=== PATIENT | female | born 1995 | race Caucasian/White ===

== ENCOUNTER 2020-06-03 12:31 | Outpatient (REF) | payer OTHER, SELFPAY ==
[2020-06-03 13:20] LABS: MANUAL DIFF FLAG NO
[2020-06-03 13:24] LABS: Basophils Percent Auto 0.4 % (0-2); Eosinophils Percent Auto 0.6 % (0-4); Hematocrit 40.9 % (37-47); Hemoglobin 14.2 g/dl (12.0-16.0); Lymphocytes Absolute Auto 1.7 X10*3/uL (1.2-4.9); Lymphocytes Percent Auto 30.5 % (20-40); Mean Corpuscular HGB Conc 34.7 g/dl (31.0-35.0); Mean Corpuscular Hemoglobin 29.5 pg (27.0-33.0); Mean Platelet Volume 10.2 fL (9.4-12.3); Monocytes Absolute Auto 0.3 X10*3/uL (0.1-1.2); Monocytes Percent Auto 4.8 % (2-11); Neutrophils Absolute Auto 3.5 X10*3/uL (2.0-8.3); Neutrophils Percent Auto 63.7 % (45-73); Platelet Count 250 X10*3/uL (160-400); Red Blood Count 4.81 X10*6/uL (4.20-5.50); Red Cell Distribution Width 11.6 % (11.0-16.0); White Blood Count 5.5 X10*3/uL (4.8-10.8)
[2020-06-03 13:28] LABS: INTERNATIONAL NORM RATIO 1.2 (0.9-1.1); Prothrombin Time 13.7 SEC (10.8-13.0)
[2020-06-03 13:30] LABS: Partial Thromboplastin Time 38.2 SEC (24.1-38.0)
[2020-06-03 13:46] LABS: Alanine Aminotransferase 13 U/L (0-31); Albumin Level 4.6 g/dL (3.5-5.0); Alkaline Phosphatase 48 U/L (39-117); Anion Gap 12 (12-20); Aspartate Amino Transferase 16 U/L (5-31); Bilirubin Total 0.8 mg/dL (0.0-1.0); Blood Urea Nitrogen 11 mg/dL (9-16); Calcium 9.3 mg/dL (8.4-10.2); Carbon Dioxide 25 mmol/L (22-29); Chloride 105 mmol/L (96-108); Estimated Glomerular Filt Rate > 60; Glucose Random 83 mg/dL (60-115); Potassium 4.3 mmol/l (3.3-5.1); Sodium 138 mmol/L (135-145); Total Protein 7.5 g/dL (6.5-8.0)
[2020-06-03 13:49] LABS: Estimated Average Glucose 82 mg/dL; Hemoglobin A1c % 4.5 %
[2020-06-03 14:02] LABS: Glucose Urine UA NEG (NEG); Leukocyte Esterase Urine NEG (NEG); Nitrite Urine NEG (NEG); Urine Blood TRACE (NEG); Urine Ketones NEG (NEG); Urine Protein NEG (NEG-TRACE)
[2020-06-03 14:06] LABS: Appearance Urine HAZY; Color Urine YELLOW
[2020-06-03 14:10] LABS: HCG Quantitative < 2 mIU/mL; Thyroid Stimulating Hormone 1.15 mIU/mL (0.32-4.0)
[2020-06-03 14:26] LABS: Mucus Urine 1+ /LPF; RBC Urine 0-2 /HPF (0); Squamous Epithelial Cell Urine 1+ /LPF; WBC Urine 0-2 /HPF (0-4)
[2020-06-04 08:42] LABS: HIV AB/AG Nonreactive (Nonreactive); HIV Num 1 0.05 S/CO (0.00-0.99); ~HepC Num1 0.08 S/CO (0.00-0.79); ~Hepatitis C Antibody Nonreactive (Nonreactive)
== END 2020-06-03 12:32 | disposition home or self-care (01) ==
LOC: HO.LAB 12:31
PROVIDERS: PCP Internal Medicine; Visit Provider Emergency Medicine
DX: Z01.818 Encounter for other preprocedural examination (principal)
CPT/HCPCS: 36415; 80053; 81001; 81003; 83036; 84443; 84702; 85025; 85610; 85730; 86803; 87389

== ENCOUNTER 2020-10-04 18:43 | Emergency (ER) | payer OTHER, SELFPAY ==
[2020-10-04 20:20] VITALS: BP 125/52; PULSE 99; RESP 18; TEMP 37.1; O2SAT 99; BMI 25.7
[2020-10-04 22:03] VITALS: BP 150/67; PULSE 70; RESP 18; O2SAT 98
[2020-10-04 22:51] VITALS: BP 119/65; PULSE 91; RESP 16; TEMP 37; O2SAT 99
--- NOTE | 2020-10-04 23:23 | ED.BACK ---
HPI - Back Pain/Injury General Chief Complaint: Back Pain/Injury Stated Complaint: back pain Time Seen by Provider: 10/04/20 23:08 Source: patient Mode of arrival: ambulatory Limitations: no limitations History of Present Illness HPI Narrative: 25-year-old female with no significant past medical history, 6 weeks , 3 para 2 0 presents with lower lumbar strain. She was cleaning out the cabinets underneath the sink last night and pulled her back out. States that she does have some tingling going down the left leg from groin down. She is having a difficult time ambulating because of the lower back pain. She does not report any symptoms indicating cauda equina, denies fevers, chills, vaginal or rectal pain, abdominal cramping, abdominal distention, dysuria, hematuria, or edema. MD elicited complaint: back pain and back injury Onset (ago): day(s) (1) Timing: constant Severity: severe Pain scale (0-10): 8 Similar Symptoms Previously: No Quality: aching, tingling and spasming Location: lumbar spine Radiation: left upper leg and left leg below the knee Exacerbating factors: movement Relieving factors: none Context: while lifting, turning/twisting and bending Associated symptoms: denies other symptoms Treatments prior to arrival: cold therapy, heat therapy and acetaminophen Work related injury: No Related Data Previous Rx's Medication Instructions Recorded lidocaine 2 patch TOPICAL DAILY PRN #15 ea 10/04/20 tramadol 50 mg PO Q8H PRN #10 tab 10/04/20 Allergies Allergy/AdvReac Type Severity Reaction Status Date / Time No Known Allergies Allergy Verified 10/04/20 20:20 [No Known Allergies*] Review of Systems Review of Systems: Constitutional: No Fever, No Chills ENT/Mouth: No Ear Pain, No Hoarseness, No sore throat Eyes: No Eye Pain, No Swelling, No Redness, No Foreign Body Cardiovascular: No Chest Pain, No SOB Respiratory: No Cough, No Dyspnea Gastrointestinal: No Nausea, No Vomiting, No Diarrhea, No abdominal Pain Genitourinary: No Dysuria, No Hematuria Musculoskeletal: positive lower back pain with left-sided sciatica, No Myalgias, No Joint Swelling Skin: No Skin lacerations, No rash Neuro: No Weakness, No Numbness, No Paresthesias, No Loss of Consciousness, No Dizziness, No Headache Psych: No Anxiety/Panic, No Depression Heme/Lymph: no easy bruising, no Lymphadenopathy Endocrine: No Polyuria, No Polydipsia Yes all other systems are reviewed and are negative [facility] Past Medical History Attestation statement: The following information was validated with the patient. Source: old records reviewed Medical History Patient denies medical problems Social History Social History Smoking Status: Never smoker Use of substances other than those prescribed or required for medical reasons: No Advance Directives: No Advance Directives Information Provided: Yes Physical Exam Vital Signs: Vital Signs: Last Vital Signs Temp 98.6 F 10/04/20 22:51 Pulse 91 10/04/20 22:51 Resp 16 10/04/20 22:51 BP 119/65 10/04/20 22:51 Pulse Ox 99 10/04/20 22:51 Body Mass Index 25.7 Appearance: Alert. Oriented X3. Moderate distress. Eyes: Pupils equal, round and reactive to light. EOMI, sclera nonicteric ENT: Pharynx normal. Moist mucous membranes Neck: Normal inspection. Neck supple. CVS: Normal heart rate and rhythm. Pulses normal. Respiratory: No respiratory distress. Lung sounds clear to auscultation all lobes Abdomen: Soft and nontender. Skin: Skin warm and dry. Normal skin color. Normal skin turgor. Extremities: Tender to bilateral lumbar, no vertebral tenderness noted, limited range of motion to the lumbar spine secondary to muscular strain, No lower extremity edema. Moves all extremities against resistance Neuro: No motor deficit. No sensory deficit. Cranial nerves 2-12 intact, no focal neural deficits. Course Course Course Narrative: 25-year-old female currently 6 weeks , presents with lumbar strain after cleaning out the cabinets under her sink. Plan is for Lidoderm patches, Tylenol, and tramadol as needed. This case was discussed with DR Guzmán in detail, patient is able to move all extremities, no focal or sensory deficits noted, no indication of cauda equina, tingling suspected to be sciatica. We did discuss possibility for x-ray however patient is 6 weeks , patient would like to defer any tests that would expose her to radiation. Two prior pregnancies both vaginal deliveries with no complications. Patient verbalized understanding of and agrees to plan of care discharge home. MDM - Back Pain/Injury Differential Diagnosis Differential diagnosis: Likely lumbar radiculopathy, sciatica and strain of lumbar region Medical Records Attestation: I reviewed the patient's medical records. Discharge Plan Discharge Clinical Impression: Strain of lumbar region Patient Disposition: Home, Self-Care Instructions: Low Back Strain (ED), Lower Back Exercises (ED) Additional Instructions: You were evaluated for a lumbar strain. We have prescribed Lidoderm patches. Lidoderm patches may be more expensive as a prescription that [id number]. Salonpas is the equivalent of the prescription Lidoderm patches. During Tylenol is safe medication to use. Please use Tylenol as directed, do not exceed 4000 mg per day. We prescribed tramadol which is a narcotic, also safe for , but this medication is highly addictive and has high risk for for abuse. Do not drive or operate machinery while taking this medication. Please use Tylenol, heat or ice prior to using this medication. You must follow-up with OBGYN and or primary care physician if symptoms persist. If you become incontinent of bowel or bladder, this is a neurological emergency and he must return to the emergency department immediately by 911. Thank you for choosing this emergency department for evaluation. Please follow-up with primary care physician as needed. Return to the emergency department for any new, concerning, or worsening symptoms. Prescriptions: New tramadol 50 mg tablet 50 mg PO Q8H PRN (Reason: pain) Qty: 10 RF: 0 lidocaine 5 % adhesive patch,medicated 2 patch topical DAILY PRN (Reason: pain) Qty: 15 RF: 0 Interventions: ED Discharge Assessment Last Done: 10/04/20 23:52 Discharge Date/Time: 10/04/20 23:53
== END 2020-10-04 23:53 | disposition home or self-care (01) ==
PROVIDERS: Emergency Provider Student in an Organized Health Care Education/Training Program; PCP Internal Medicine
DX: O9A.211 Injury, poisoning and certain other consequences of external causes complicating pregnancy, first trimester (principal); S39.012A Strain of muscle, fascia and tendon of lower back, initial encounter; X50.0XXA Overexertion from strenuous movement or load, initial encounter; Z3A.01 Less than 8 weeks gestation of pregnancy; Y93.E9 Activity, other interior property and clothing maintenance; Y92.010 Kitchen of single-family (private) house as the place of occurrence of the external cause; Y99.9 Unspecified external cause status
CPT/HCPCS: 99283; 99284